=== PATIENT | female | born 1995 | race American Indian/Alaskan Native ===

== ENCOUNTER 2017-08-19 23:02 | Emergency (ER) | payer MEDICAID, OTHER ==
[2017-08-19 23:20] VITALS: BP 122/85; PULSE 90; TEMP 99.2; O2SAT 98
--- NOTE | 2017-08-19 23:41 | C.PDOC ---
History Of Present Illness 21 y/o female presents to the ED for evaluation of suprapubic abdominal pain that is associated with painful urination for the past few days. Patient admits she is currently taking control pills. Patient denies fever, chills, abd. pain, N/V/D, back pain, hematuria, vaginal discharge or irritation. Ambulate to Ed for evaluation, not in any apparent distress. Time Seen by Provider: 08/19/17 23:26 Chief Complaint (Nursing): Female Genitourinary History Per: Patient History/Exam Limitations: no limitations Onset/Duration Of Symptoms: Days Current Symptoms Are (Timing): Still Present Quality Of Discomfort: "Pain" Associated Symptoms: Other (pain with urination ). denies: Fever, Chills, Back Pain, Urinary Symptoms (hematuria ) Additional History Per: Patient Abnormal Vaginal Bleeding: No Past Medical History Reviewed: Historical Data, Nursing Documentation, Vital Signs Vital Signs: Last Vital Signs Temp 99.2 F 08/19/17 23:17 Pulse 90 08/19/17 23:17 Resp 18 08/19/17 23:17 BP 122/85 08/19/17 23:17 Pulse Ox 98 08/19/17 23:44 - Medical History PMH: No Chronic Diseases Surgical History: No Surg Hx Family History: States: Unknown Family Hx - Social History Hx Alcohol Use: No Hx Substance Use: No - Immunization History Hx Tetanus Toxoid Vaccination: No Hx Influenza Vaccination: No Hx Pneumococcal Vaccination: No Review Of Systems Constitutional: Negative for: Fever, Chills Gastrointestinal: Positive for: Abdominal Pain (suprapubic ) Genitourinary: Positive for: Dysuria. Negative for: Hematuria, Vaginal Discharge Musculoskeletal: Negative for: Back Pain Physical Exam - Physical Exam Appears: Well, Non-toxic, No Acute Distress Skin: Normal Color, Warm, Dry, No Rash Nose: No Flaring Oral Mucosa: Moist, No Drooling Throat: No Erythema Neck: Supple Chest: No Deformity, No Tenderness Cardiovascular: Rhythm Regular, No Murmur Respiratory: No Decreased Breath Sounds, No Accessory Muscle Use, No Rales, No Rhonchi, No Stridor, No Wheezing Gastrointestinal/Abdominal: Soft, Tenderness (suprapubic ), No Distention, No Guarding, No Rebound Back: No CVA Tenderness Extremity: No Pedal Edema, Capillary Refill (less than 2 seconds ), No Swelling Neurological/Psych: Oriented x3, Normal Speech, Normal Cognition Gait: Steady ED Course And Treatment O2 Sat by Pulse Oximetry: 98 (on RA) Pulse Ox Interpretation: Normal Progress Note: Urinalysis ordered and reviewed. On re-eval, pt resting comfortably, not in any apparent distress. Afebrile, hemodynamicaly stable. non-toxic, tolerate PO well in ED. PulsEOx 98% RA. Neck: Supple, (-) midline tenderness. ENT: no acute findings. Lungs: CTA B/L, BS equal B/L. Abd: benign , (-) guarding, (-) rebound, (-) localized tenderness. back: (-) CVA tenderness. UA results review (+) nitrates. Pt has clinical findings c/w UTI. Ucx- pending. Pt received oral abx. Pt advised on course of ds. ref. to f/ u with PMD and [facility] OPERATOR in 2-3 days for re-eval, return to ED immediately if any worsening or new changes. pt understand and agrees with discharges. Pt is stable for discharges now. Disposition Counseled Patient/Family Regarding: Studies Performed, Diagnosis, Need For Followup, Rx Given - Disposition Referrals: Clinic,Med Surg [Primary Care Provider] - [facility]Outside] Disposition: HOME/ ROUTINE Disposition Time: 00:05 Condition: STABLE Additional Instructions: Encourage fluids Cranberry supplement Take medication as prescribed Follow up with PMD and/or [facility] OPERATOR In 2-3 days for re-evaluation. Return to ED if any worsening or new changes. Prescriptions: Ciprofloxacin [Cipro] 1 tab PO BID #14 tab Cranberry Fruit Extract [Cranberry] 500 mg PO BID #20 capsule Instructions: Urinary Tract Infection in Women (ED) Forms: [employer] (Latvian) - Clinical Impression Clinical Impression: UTI (urinary tract infection) - PA / DROP FORGER HELPER / Resident Statement MD/DO has reviewed & agrees with the documentation as recorded. - Scribe Statement The provider has reviewed the documentation as recorded by the Scribe (Kassie Miller) All medical record entries made by the Scribe were at my direction and personally dictated by me. I have reviewed the chart and agree that the record accurately reflects my personal performance of the history, physical exam, medical decision making, and the department course for this patient. I have also personally directed, reviewed, and agree with the discharge instructions and disposition.
[2017-08-19 23:58] LABS: RBC URINE 11 /hpf (0-3); TRANSITIONAL EPITHIAL < 1 /hpf (0-3); URINE BACTERIA MOD (<OCC); URINE BILIRUBIN NEGATIVE (NEGATIVE); URINE COLOR Yellow (YELLOW); URINE GLUCOSE (UA) NORMAL (Normal); URINE KETONE NEGATIVE (NEGATIVE); URINE PROTEIN 1+ mg/dL (NEGATIVE); URINE UROBILINOGEN NORMAL mg/dL (0.2-1.0); WBC URINE 16 /hpf (0-5)
[2017-08-19 23:59] LABS: URINE BLOOD 2+ (NEGATIVE); URINE LEUKOCYTE ESTERASE 2+ Leu/uL (Negative)
[2017-08-20 00:16] VITALS: RESP 20
== END 2017-08-20 00:16 | disposition home or self-care (01) ==
LOC: SUPCPDRO 23:02 → C.ER 23:02
DX: N39.0 Urinary tract infection, site not specified (principal)